=== PATIENT | male | born 2000 | race Caucasian/White ===

== ENCOUNTER 2021-01-19 10:53 | Emergency (ER) | payer OTHER ==
[2021-01-19 11:14] LABS: Urine Blood Negative (Negative); Urine Glucose Negative (Negative); Urine Protein Negative (Negative)
[2021-01-19 11:19] LABS: Absolute Lymphocytes (CBC) 0.9 K/uL (0.7-4.9); Basophils % 0.7 % (0-1.3); Hematocrit 46.3 % (39.6-49.0); Lymphocytes % 14.6 % (15.3-44.8); MPV 10.6 fL (7.6-11.3); RBC Red Blood Cell Count 5.06 M/uL (4.33-5.43)
[2021-01-19] MEDS ORDERED: NA CHLORIDE 0.9% 1,000 ML ONE (11:25)
[2021-01-19 11:28] LABS: Protime INR 1.01
[2021-01-19 11:41] LABS: ALT/SGPT 21 U/L (12-78); AST/SGOT 13 U/L (15-37); Albumin 3.7 g/dL (3.4-5.0); Alkaline Phosphatase 45 U/L (45-117); BUN Blood Urea Nitrogen 14 mg/dL (7-18); Bicarbonate 31 mmol/L (21-32); Bilirubin Direct < 0.1 mg/dL (0-0.2); Bilirubin Total 0.3 mg/dL (0.2-1.0); Glucose Level 90 mg/dL (74-106); Potassium 4.5 mmol/L (3.5-5.1); Sodium Level 140 mmol/L (136-145)
[2021-01-19 11:46] LABS: Barbiturates NEGATIVE (NEGATIVE); Benzodiazepines NEGATIVE (NEGATIVE); Cocaine NEGATIVE (NEGATIVE); METHAMPHETAM NEGATIVE (NEGATIVE); Methadone NEGATIVE (NEGATIVE); Opiates NEGATIVE (NEGATIVE); Phencyclidine NEGATIVE (NEGATIVE); THC Cannibis NEGATIVE (NEGATIVE)
--- NOTE | 2021-01-19 14:42 | ER ---
Nurse's Notes [facility] Name: Juan Steve Age: 20 yrs Sex: Male : 2000 Arrival Date: 01/19/2021 Time: 10:54 Bed Treatment Private MD: Diagnosis: Poisoning by unspecified drugs, medicaments and biological substances, undetermined Presentation: 01/19 10:54 Chief complaint: EMS states: "pt with overdose this morning at 0830 taken approximately jd3 7 of his prescribed Zoloft at 50 mg each. he denies suicidal thoughts reported he was mad about the unit being on lock down and wanted to get high.". Coronavirus screen: At this time, the client does not indicate any symptoms associated with coronavirus-19. Ebola Screen: Patient negative for fever greater than or equal to 101.5 degrees Fahrenheit, and additional compatible Ebola Virus Disease symptoms. Initial Sepsis Screen: Does the patient meet any 2 criteria? No. Patient's initial sepsis screen is negative. Does the patient have a suspected source of infection? No. Patient's initial sepsis screen is negative. Risk Assessment: Do you want to hurt yourself or someone else? Patient reports no desire to harm self or others. Onset of symptoms was January 19, 2021. 10:54 Method Of Arrival: EMS: [facility] jd3 10:54 Acuity: GERARD 2 jd3 Historical: - Allergies: 10:58 No Known Allergies; jd3 - Home Meds: 10:58 Zoloft 50 mg Oral tab 1 tab once daily [Active]; jd3 - PMHx: 10:58 Depression; jd3 - PSHx: 10:58 None; jd3 - Immunization history:: Adult Immunizations unknown. - Social history:: Smoking status: unknown. Screenin:56 Abuse screen: Denies threats or abuse. Denies injuries from another. Nutritional ld1 screening: No deficits noted. Tuberculosis screening: No symptoms or risk factors identified. Fall Risk IV access (20 points). Assessment: 10:56 Reassessment: Spoke with Attila at poison control - case # [id number]. Instructed to watch ld1 for seizures/N/V/Sleepiness/tachycardia. Check EKG, liver enzymes. Monitor for 6 hours until receive baseline, perform EKG, monitor VS, standard TOX screen. General: Appears in no apparent distress. comfortable, Behavior is calm, cooperative, appropriate for age, Patient reports taking 7 50mg Zoloft pills at 0830. Denies suicidal ideation, stated "he just wanted to get high.". Pain: Denies pain. Neuro: Level of Consciousness is awake, alert, obeys commands, Drowsy. Oriented to person, place, time, situation, Reports. Cardiovascular: Capillary refill < 3 seconds Patient's skin is warm and dry. Respiratory: Airway is patent Respiratory effort is even, unlabored, Respiratory pattern is regular, symmetrical. GI: Abdomen is flat, non-distended. : No deficits noted. EENT: No deficits noted. Derm: No deficits noted. Musculoskeletal: No deficits noted. 11:38 Reassessment: Patient and/or family updated on plan of care and expected duration. Pain ld1 level reassessed. Patient is alert, oriented x 3, equal unlabored respirations, skin warm/dry/pink. Patient denies pain at this time. 12:50 Reassessment: Patient and/or family updated on plan of care and expected duration. Pain ld1 level reassessed. Patient is alert, oriented x 3, equal unlabored respirations, skin warm/dry/pink. Patient denies pain at this time. Overdose: 14:48 [place] Suicide Severity Screening: "In the past month, have you wished you were ld1 or wished you could go to sleep and not wake up?" Patient responds "no." "In the past month, have you actually had any thoughts of killing yourself?" Patient responds "no." "In your lifetime, have you ever done anything, started to do anything, or prepared to do anything to end your life?" Patient responds "no.". Patient took 7 50MG OF ZOLOFT. Overdose occurred 6-8 hours ago. 14:49 [place] Suicide Severity Screening: "In the past month, have you wished you were ld1 or wished you could go to sleep and not wake up?" Patient responds "no." Patient responds "yes." Based off client's responses, additional C-SSRS screening questions required. "In the past month, have you actually had any thoughts of killing yourself?" Patient responds "yes." Based off client's responses, additional C-SSRS screening questions required. Vital Signs: 10:58 BP 127 / 65; Pulse 66; Resp 16 S; Temp 97.6(TE); Pulse Ox 100% on R/A; Weight 83.91 kg jd3 (R); Height 5 ft. 10 in. (177.80 cm) (R); Pain 3/10; 11:38 BP 125 / 70; Pulse 72; Resp 18; Pulse Ox 100% on R/A; ld1 12:50 BP 133 / 70; Pulse 78; Resp 18; Pulse Ox 100% on R/A; Pain 0/10; ld1 10:58 Body Mass Index 26.54 (83.91 kg, 177.80 cm) jd3 ED Course: 10:54 Patient arrived in ED. ld1 10:56 Alex Pleitez NP is PHCP. pm1 10:56 Al Nix MD is Attending Physician. pm1 10:56 Patient has correct armband on for positive identification. Placed in gown. Bed in low ld1 position. Call light in reach. Side rails up X2. Security at bedside. radiocommunications technician on. Pulse ox on. NIBP on. 10:56 No provider procedures requiring assistance completed. Maintain EMS IV. Dressing ld1 intact. Good blood return noted. Site clean \\T\\ dry. Gauge \\T\\ site: 20G LAC. 10:57 Triage completed. jd3 10:59 Arm band placed on. jd3 11:18 Initial lab(s) drawn, by me, sent to lab. Urine collected: clean catch specimen, clear, jl7 EKG done, by ED staff, reviewed by Alex Pleitez NP. 11:27 Erica Cisneros RN is Primary Nurse. ld1 14:50 IV discontinued. ld1 Administered Medications: 11:09 Drug: NS 0.9% 1000 ml Route: IV; Rate: 1 bolus; Site: left antecubital; ld1 Outcome: 14:42 Discharge ordered by MD. pm1 14:49 Discharged to Law Enforcement ld1 14:49 Condition: stable 14:49 Discharge instructions given to patient, police, Instructed on discharge instructions, Demonstrated understanding of instructions, follow-up care. 14:57 Patient left the ED. ld1 Signatures: Alex Pleitez NP BILINGUAL CUSTOMER SERVICE pm1 Jeri Beavers RN RN jl7 Charlie Kelly RN RN jd3 Dibbern, Erica, RN RN ld1
--- NOTE | 2021-01-19 14:42 | EDPHYS ---
Physician Documentation [facility] Name: Juan Steve Age: 20 yrs Sex: Male : 2000 Arrival Date: 01/19/2021 Time: 10:54 Bed Treatment Private MD: ED Physician Al Nix HPI: 01/19 11:06 This 20 yrs old Male presents to ER via EMS with complaints of Overdose. pm1 11:06 The patient presents to the emergency department after a known overdose. Context: pm1 Method: the patient has a confirmed or suspected ingestion, Zoloft 50 mg - 7 pills, Time: this morning, at 08:30, the OD/poisoning occurred at [facility], Psychiatric history: the patient has a known psychiatric disorder, depression. Associated signs and symptoms: Pertinent positives: sleepiness, Pertinent negatives: shortness of breath, chest pain. Severity of symptoms: in the emergency department the symptoms have improved Patient feels less sleepy now. The patient has not recently seen a physician. Patient is a prisoner and he was upset that they are in lock down so he took extra zoloft because he has trying to get high. Denies suicidal and homicidal ideation. Historical: - Allergies: 10:58 No Known Allergies; jd3 - Home Meds: 10:58 Zoloft 50 mg Oral tab 1 tab once daily [Active]; jd3 - PMHx: 10:58 Depression; jd3 - PSHx: 10:58 None; jd3 - Immunization history:: Adult Immunizations unknown. - Social history:: Smoking status: unknown. ROS: 11:06 Constitutional: Negative for fever, chills, and weight loss, Eyes: Negative for injury, pm1 pain, redness, and discharge, ENT: Negative for injury, pain, and discharge, Cardiovascular: Negative for chest pain, palpitations, and edema, Respiratory: Negative for shortness of breath, cough, wheezing, and pleuritic chest pain, Abdomen/GI: Negative for abdominal pain, nausea, vomiting, diarrhea, and constipation, Back: Negative for injury and pain, MS/Extremity: Negative for injury and deformity, Skin: Negative for injury, rash, and discoloration, Neuro: Negative for headache, weakness, numbness, tingling, and seizure. 11:06 Psych: Negative for homicidal ideation, suicidal ideation. Exam: 11:06 Constitutional: This is a well developed, well nourished patient who is awake, alert, pm1 and in no acute distress. Head/Face: Normocephalic, atraumatic. Cardiovascular: Regular rate and rhythm with a normal S1 and S2. No gallops, murmurs, or rubs. Normal PMI, no JVD. No pulse deficits. Respiratory: Lungs have equal breath sounds bilaterally, clear to auscultation and percussion. No rales, rhonchi or wheezes noted. No increased work of breathing, no retractions or nasal flaring. 11:06 Back: No spinal tenderness. No costovertebral tenderness. Full range of motion. Skin: Warm, dry with normal turgor. Normal color with no rashes, no lesions, and no evidence of cellulitis. MS/ Extremity: Pulses equal, no cyanosis. Neurovascular intact. Full, normal range of motion. 11:06 Abdomen/GI: Exam negative for acute changes, Inspection: abdomen appears normal, Palpation: abdomen is soft and non-tender, in all quadrants. 11:06 Neuro: Exam negative for acute changes, Orientation: is normal, Mentation: is normal, Motor: is normal, moves all fours. Vital Signs: 10:58 BP 127 / 65; Pulse 66; Resp 16 S; Temp 97.6(TE); Pulse Ox 100% on R/A; Weight 83.91 kg jd3 (R); Height 5 ft. 10 in. (177.80 cm) (R); Pain 3/10; 11:38 BP 125 / 70; Pulse 72; Resp 18; Pulse Ox 100% on R/A; ld1 12:50 BP 133 / 70; Pulse 78; Resp 18; Pulse Ox 100% on R/A; Pain 0/10; ld1 10:58 Body Mass Index 26.54 (83.91 kg, 177.80 cm) jd3 MDM: 10:57 Patient medically screened. pm1 14:42 Data reviewed: vital signs. Data interpreted: Pulse oximetry: on room air is 100 %. pm1 Interpretation: normal. Counseling: I had a detailed discussion with the patient and/or guardian regarding: the historical points, exam findings, and any diagnostic results supporting the discharge/admit diagnosis, lab results, the need for outpatient follow up. 14:46 ED course: Patient is at his baseline asking for food and water. Patient took pm1 medications over 6 hours ago and is medically cleared to return to senior care. 01/19 10:57 Order name: Acetaminophen pm01/19 10:57 Order name: Basic Metabolic Panel pm01/19 10:57 Order name: CBC with Diff pm01/19 10:57 Order name: ETOH Level 01/19 10:57 Order name: Hepatic Function; Complete Time: 11:54 pm01/19 10:57 Order name: PT-INR; Complete Time: 11:54 pm01/19 10:57 Order name: Ptt, Activated; Complete Time: 11:54 pm01/19 10:57 Order name: Salicylate; Complete Time: 11:54 pm01/19 10:57 Order name: Urine Drug Screen; Complete Time: 11:54 pm01/19 10:57 Order name: Acetaminophen Level; Complete Time: 11:54 ED01/19 10:57 Order name: Basic Metabolic Panel; Complete Time: 11:54 ED01/19 10:57 Order name: CBC with Automated Diff; Complete Time: 11:54 ED01/19 10:57 Order name: Alcohol Serum/Plasma; Complete Time: 11:54 ED01/19 11:14 Order name: Urine Dipstick-Ancillary; Complete Time: 11:54 ED01/19 10:57 Order name: EKG; Complete Time: 10:57 pm01/19 10:57 Order name: EKG - Nurse/Tech; Complete Time: 11:04 pm01/19 10:57 Order name: IV Saline Lock; Complete Time: 11:04 01/19 10:57 Order name: Labs collected and sent; Complete Time: 11:27 pm01/19 10:57 Order name: Suicide Screening ([place]); Complete Time: 11:04 pm01/19 10:57 Order name: Urine Dipstick-Ancillary (obtain specimen); Complete Time: 11:27 pm01/19 11:01 Order name: Misc. Order: Contact poison control; Complete Time: 11:04 01/19 11:05 Order name: Seizure Precautions; Complete Time: 11:06 ld1 Administered Medications: 11:09 Drug: NS 0.9% 1000 ml Route: IV; Rate: 1 bolus; Site: left antecubital; ld1 Disposition: 01/20 07:14 Co-signature as Attending Physician, Al Nix MD I agree with the assessment and brien plan of care. Disposition: 01/19/21 14:42 Discharged to Home. Impression: Poisoning by unspecified drugs, medicaments and biological substances, undetermined. - Condition is Stable. - Medication Reconciliation Form, Thank You Letter, Antibiotic Education, Prescription Opioid Use form. - Follow up: Emergency Department; When: As needed; Reason: Worsening of condition. Follow up: Private Physician; When: 2 - 3 days; Reason: Recheck today's complaints, Continuance of care, Re-evaluation by your physician. - Problem is new. - Symptoms have improved. Signatures: Dispatcher [employer] EDMS Al Nix MD MD cha Marinas, Patrick, [employer] pm1 Charlie Kelly RN RN jErica Brooks RN RN ld1 Corrections: (The following items were deleted from the chart) 01/19 14:57 14:42 01/19/2021 14:42 Discharged to Home. Impression: Poisoning by unspecified drugs, ld1 medicaments and biological substances, undetermined. Condition is Stable. Forms are Medication Reconciliation Form, Thank You Letter, Antibiotic Education, Prescription Opioid Use. Follow up: Emergency Department; When: As needed; Reason: Worsening of condition. Follow up: Private Physician; When: 2 - 3 days; Reason: Recheck today's complaints, Continuance of care, Re-evaluation by your physician. Problem is new. Symptoms have improved. pm1
[2021-01-19 15:08] VITALS: TEMP 97.6; O2SAT 100
[2021-01-19 15:11] VITALS: BP 133/70
--- NOTE | 2021-01-20 11:16 | EKG ---
Test Date: 2021-01-19 Test Time: 11:06:06 Pipeline Superintendent: SARAI MEASUREMENT RESULTS: Intervals: Rate: 66 [place]: 126 QRSD: 102 QT: 372 QTc: 389 [place]: P: 46 [place]: 126 QRS: 82 T: 52 INTERPRETIVE STATEMENTS: Normal sinus rhythm Normal ECG No previous ECG available for comparison Electronically Signed On 01-20-21 11:13:39 CDT by Dimitris Hoyos
== END 2021-01-19 14:57 | disposition home or self-care (01) ==
LOC: ER 10:53
DX: T43.221A Poisoning by selective serotonin reuptake inhibitors, accidental (unintentional), initial encounter (principal); F32.9 Major depressive disorder, single episode, unspecified
CPT/HCPCS: 36415; 80048; 80076; 80307; 80320; 80329; 81003; 85025; 85610; 85730; 93005; 99285; J7030

== ENCOUNTER 2021-04-23 05:40 | Emergency (ER) | payer OTHER ==
[2021-04-23 06:03] LABS: Urine Blood Negative (Negative); Urine Glucose Negative (Negative); Urine Protein Negative (Negative)
[2021-04-23 06:05] LABS: Absolute Lymphocytes (CBC) 1.1 K/uL (0.7-4.9); Basophils % 0.6 % (0-1.3); Hematocrit 42.3 % (39.6-49.0); Lymphocytes % 13.7 % (15.3-44.8); RBC Red Blood Cell Count 4.71 M/uL (4.33-5.43)
[2021-04-23 06:13] LABS: Protime INR 1.22
[2021-04-23] MEDS ORDERED: NA CHLORIDE 0.9% 1,000 ML ONE (06:14)
[2021-04-23 06:17] LABS: Barbiturates NEGATIVE (NEGATIVE); Benzodiazepines NEGATIVE (NEGATIVE); Cocaine NEGATIVE (NEGATIVE); METHAMPHETAM NEGATIVE (NEGATIVE); Methadone NEGATIVE (NEGATIVE); Opiates NEGATIVE (NEGATIVE); Phencyclidine NEGATIVE (NEGATIVE); THC Cannibis NEGATIVE (NEGATIVE)
[2021-04-23 06:41] LABS: ALT/SGPT 18 U/L (12-78); AST/SGOT 16 U/L (15-37); Albumin 4.3 g/dL (3.4-5.0); Alkaline Phosphatase 46 U/L (45-117); BUN Blood Urea Nitrogen 12 mg/dL (7-18); Bicarbonate 27 mmol/L (21-32); Bilirubin Direct 0.2 mg/dL (0-0.2); Bilirubin Total 0.8 mg/dL (0.2-1.0); Glucose Level 86 mg/dL (74-106); Potassium 3.8 mmol/L (3.5-5.1); Protein, Total 7.3 g/dL (6.4-8.2); Sodium Level 141 mmol/L (136-145); Valproic Acid (Depakene) Level 122.7 ug/mL (50-100)
--- NOTE | 2021-04-23 14:12 | EDPHYS ---
Physician Documentation [facility] Name: Juan Steve Age: 20 yrs Sex: Male : 2000 Arrival Date: 04/23/2021 Time: 05:42 Bed 8 Private MD: ED Physician Al Nix HPI: 04/23 06:30 This 20 yrs old Male presents to ER via EMS with complaints of Overdose. cp 06:30 The patient presents to the emergency department after a known overdose, that was cp intentional. Context: Method: the patient has a confirmed or suspected ingestion, 8 tablets of Depakote and unknown number of Zoloft, Time: this morning, 0300, the OD/poisoning occurred at skilled nursing, Psychiatric history: the patient has a known psychiatric disorder, depression. Associated signs and symptoms: Pertinent positives: vomiting. Historical: - Home Meds: 05:51 Zoloft 50 mg Oral tab 1 tab once daily [Active]; ea - PMHx: 05:51 Depression; ea - Immunization history:: Adult Immunizations unknown. - Social history:: Smoking status: unknown. ROS: 06:30 Eyes: Negative for injury, pain, redness, and discharge. cp 06:30 Constitutional: Negative for body aches, chills, fever, poor PO intake. 06:30 ENT: Negative for ear pain, sore throat, difficulty swallowing, difficulty handling secretions. 06:30 Cardiovascular: Negative for chest pain, edema, palpitations. 06:30 Respiratory: Negative for cough, shortness of breath, wheezing. 06:30 Abdomen/GI: Positive for nausea and vomiting, Negative for abdominal pain, diarrhea, constipation. 06:30 Skin: Negative for cellulitis, rash. 06:30 Neuro: Negative for altered mental status, headache, weakness. 06:30 Psych: Negative for auditory hallucinations, visual hallucinations. 06:30 All other systems are negative. cp Exam: 06:30 ECG was reviewed by the Attending Physician. cp 06:35 Constitutional: The patient appears in no acute distress, alert, awake, cp non-diaphoretic, non-toxic, well developed, well nourished. 06:35 Head/Face: Normocephalic, atraumatic. cp 06:35 Eyes: Periorbital structures: appear normal, Pupils: equal, round, and reactive to light and accomodation, Extraocular movements: intact throughout, Conjunctiva: normal, no exudate, no injection, Sclera: no appreciated abnormality, Lids and lashes: appear normal, bilaterally. 06:35 ENT: External ear(s): are unremarkable, Nose: is normal, Mouth: is normal, Posterior pharynx: Airway: no evidence of obstruction, patent. 06:35 Neck: ROM/movement: is normal, is supple, without pain, no range of motions limitations. 06:35 Chest/axilla: Inspection: normal, Palpation: is normal, no crepitus, no tenderness. 06:35 Cardiovascular: Rate: normal, Rhythm: regular, Edema: is not appreciated, JVD: is not appreciated. 06:35 Respiratory: the patient does not display signs of respiratory distress, Respirations: normal, no use of accessory muscles, no retractions, labored breathing, is not present, Breath sounds: are clear throughout, no decreased breath sounds, no stridor, no wheezing. 06:35 Abdomen/GI: Inspection: abdomen appears normal, Palpation: abdomen is soft and non-tender, in all quadrants. 06:35 Back: pain, is absent, ROM is normal. 06:35 Neuro: Orientation: to person, place \T\ time. Mentation: is normal, Cerebellar function: is grossly normal, Motor: moves all fours, strength is normal, Sensation: is normal. 13:20 ECG was reviewed by the Attending Physician. cp Vital Signs: 05:48 BP 134 / 59; Pulse 84; Resp 18; Pulse Ox 98% on R/A; ea 08:20 BP 137 / 87; Pulse 70; Resp 19; Pulse Ox 98% on R/A; hb 09:43 BP 136 / 84; Pulse 83; Resp 16; Pulse Ox 96% ; hb 10:29 BP 132 / 67; Pulse 80; Resp 16; Pulse Ox 99% on R/A; hb 11:43 BP 128 / 64; Pulse 71; Resp 15; Pulse Ox 97% on R/A; Pain 0/10; hb 12:30 BP 124 / 55; Pulse 52; Resp 20; Pulse Ox 99% ; hb 13:42 BP 128 / 57; Pulse 93; Resp 17; Pulse Ox 99% on R/A; hb MDM: 06:15 Patient medically screened. cp 14:10 Data reviewed: vital signs, nurses notes, lab test result(s), EKG, I have discussed the cp patient's presentation/case with the attending Emergency Department Physician; and as a result, I will discharge patient. 04/23 05:49 Order name: Acetaminophen [facility] 04/23 05:49 Order name: Basic Metabolic Panel [facility] 04/23 05:49 Order name: CBC with Diff [facility] 04/23 05:49 Order name: ETOH Level [facility] 04/23 05:49 Order name: Hepatic Function [facility] 04/23 05:49 Order name: PT-INR [facility] 04/23 05:49 Order name: Ptt, Activated; Complete Time: 06:49 04/23 05:49 Order name: Salicylate; Complete Time: 06:49 04/23 05:49 Order name: Urine Drug Screen; Complete Time: 06:49 04/23 06:49 Interpretation: Reviewed. cp 04/23 05:49 Order name: Depakote; Complete Time: 06:49 [facility] 04/23 06:49 Interpretation: Abnormal: VALP 122.7. 04/23 05:49 Order name: Acetaminophen Level; Complete Time: 06:49 EDMS 04/23 05:49 Order name: Basic Metabolic Panel; Complete Time: 06:49 EDMS 04/23 05:49 Order name: CBC with Automated Diff; Complete Time: 06:49 EDMS 04/23 06:49 Interpretation: Normal except: PLT 146; PAULETTE% 79.0; LYM% 13.7. 04/23 05:49 Order name: Alcohol Serum/Plasma; Complete Time: 06:49 EDMS 04/23 05:49 Order name: EKG; Complete Time: 05:49 04/23 05:49 Order name: EKG - Nurse/Tech; Complete Time: 06:02 04/23 05:49 Order name: IV Saline Lock; Complete Time: 05:54 04/23 05:49 Order name: Labs collected and sent; Complete Time: 05:54 04/23 05:49 Order name: Suicide Screening ([place]); Complete Time: 14:07 04/23 05:49 Order name: Urine Dipstick-Ancillary (obtain specimen); Complete Time: 06:02 04/23 05:49 Order name: Liver (Hepatic) Function; Complete Time: 06:49 EDMS 04/23 05:49 Order name: Protime (+INR); Complete Time: 06:49 EDMS 04/23 06:03 Order name: Urine Dipstick-Ancillary; Complete Time: 06:49 EDMS 04/23 06:17 Order name: Depakote; Complete Time: 06:49 ea 04/23 08:39 Order name: SARS-COV-2 RT PCR; Complete Time: 12:40 EDMS 04/23 08:58 Order name: Diet Regular; Complete Time: 08:59 hb 04/23 12:41 Order name: Valproic Acid (depakote); Complete Time: 14:00 cp 04/23 13:00 Order name: EKG; Complete Time: 13:01 cp 04/23 13:00 Order name: EKG - Nurse/Tech; Complete Time: 13:42 cp EC:30 Rate is 76 beats/min. Rhythm is regular. [place] interval is normal. QRS interval is cp prolonged at 106 msec. QT interval is normal. T waves are Inverted in lead aVR. Interpreted by me. Reviewed by me. 13:20 Rate is 75 beats/min. Rhythm is regular. [place] interval is normal. QRS interval is cp prolonged at 104 msec. QT interval is normal. T waves are Inverted in lead aVR. Interpreted by me. Reviewed by me. Administered Medications: 06:02 Drug: NS 0.9% 1000 ml Route: IV; Rate: 1 bolus; Site: right forearm; ad5 Disposition: 04/24 06:27 Co-signature as Attending Physician, Al Nix MD I agree with the assessment and brien plan of care. 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 EDMS EDMS 14:13 14:11 Home cp cp 07 14:48 06:30 Constitutional: Negative for body aches, chills, fever, poor PO intake, cp cp 14:48 06:30 Cardiovascular: Negative for chest pain, edema, palpitations, cp cp 14:48 06:30 Respiratory: Negative for cough, shortness of breath, wheezing, cp cp 14:48 06:30 Abdomen/GI: Positive for nausea and vomiting, Negative for abdominal pain, cp diarrhea, constipation, cp 14:48 06:30 Eyes: Negative for injury, pain, redness, and discharge, cp cp 14:48 06:30 ENT: Negative for ear pain, sore throat, difficulty swallowing, difficulty cp handling secretions, cp 14:48 06:30 Skin: Negative for cellulitis, rash, cp cp 14:48 06:30 Neuro: Negative for altered mental status, headache, weakness, cp cp 14:48 06:30 Psych: Negative for auditory hallucinations, visual hallucinations, cp cp 14:50 06:30 All other systems are negative, cp cp
--- NOTE | 2021-04-23 14:12 | ER ---
Nurse's Notes [facility] Name: Juan Steve Age: 20 yrs Sex: Male : 2000 Arrival Date: 04/23/2021 Time: 05:42 Bed 8 Private MD: Diagnosis: Other psychoactive substance abuse Presentation: 04/23 05:48 Chief complaint: EMS states: Reports pt admitted to taking 6 depakote, and a hand full ea of zoloft about 3 1/2 hours ago. Coronavirus screen: At this time, the client does not indicate any symptoms associated with coronavirus-19. Ebola Screen: No symptoms or risks identified at this time. Initial Sepsis Screen: Does the patient meet any 2 criteria? No. Patient's initial sepsis screen is negative. Does the patient have a suspected source of infection? No. Patient's initial sepsis screen is negative. Risk Assessment: Do you want to hurt yourself or someone else? Patient reports no desire to harm self or others. Onset of symptoms was April 23, 2021. 05:48 Method Of Arrival: EMS: [facility] ea 05:48 Acuity: GERARD 3 ea Historical: - Home Meds: 05:51 Zoloft 50 mg Oral tab 1 tab once daily [Active]; ea - PMHx: 05:51 Depression; ea - Immunization history:: Adult Immunizations unknown. - Social history:: Smoking status: unknown. Screenin:50 Abuse screen: Denies threats or abuse. Nutritional screening: No deficits noted. ea Tuberculosis screening: No symptoms or risk factors identified. Fall Risk None identified. Assessment: 05:42 Reassessment: Pt to room 8 with PD at bedside for continuous monitoring. Pt remains in ad5 clothing from facility, attached to . C-SSRS paper form completed at this time. 05:51 General: Appears uncomfortable. Pain: Denies pain. Neuro: Level of Consciousness is ea awake, alert, obeys commands, Oriented to person, place, time. Cardiovascular: Patient's skin is warm and dry. Respiratory: Airway is patent Respiratory effort is even, unlabored, Respiratory pattern is regular, symmetrical. Derm: Skin is pink, warm \T\ dry. 05:52 Reassessment: Spoke to Marcello at poison control, suggested tox work up, supportive ea care, 46 hour valporic acid leve, obs pt for 12 hours, watch for [employer] depression #[id number]. 07:00 Reassessment: RECD REPORT FROM GREY KRAMER. 20YO WM [facility] INMATE P/W INTENTIONAL OVERDOSE bp OF DEPAKOTE AND ZOLOFT PER POISON CONTROL, PT TO REMAIN UNDER OBS FOR 12 HOURS AFTER INGESTION, \R\1500. 07:15 Reassessment: Patient appears in no apparent distress at this time. Patient and/or hb family updated on plan of care and expected duration. Pain level reassessed. Patient is alert, oriented x 3, equal unlabored respirations, skin warm/dry/pink. 08:15 Reassessment: Patient appears in no apparent distress at this time. Patient and/or hb family updated on plan of care and expected duration. Pain level reassessed. Patient is alert, oriented x 3, equal unlabored respirations, skin warm/dry/pink. 09:42 Reassessment: Patient appears in no apparent distress at this time. Patient and/or hb family updated on plan of care and expected duration. Pain level reassessed. Patient is alert, oriented x 3, equal unlabored respirations, skin warm/dry/pink. 10:29 Reassessment: Patient appears in no apparent distress at this time. Patient and/or hb family updated on plan of care and expected duration. Pain level reassessed. Patient is alert, oriented x 3, equal unlabored respirations, skin warm/dry/pink. 11:43 Reassessment: Patient appears in no apparent distress at this time. Patient and/or hb family updated on plan of care and expected duration. Pain level reassessed. Patient is alert, oriented x 3, equal unlabored respirations, skin warm/dry/pink. 12:45 Reassessment: Patient appears in no apparent distress at this time. Patient and/or hb family updated on plan of care and expected duration. Pain level reassessed. Patient is alert, oriented x 3, equal unlabored respirations, skin warm/dry/pink. 13:43 Reassessment: Patient appears in no apparent distress at this time. Patient and/or hb family updated on plan of care and expected duration. Pain level reassessed. Patient is alert, oriented x 3, equal unlabored respirations, skin warm/dry/pink. 14:51 Reassessment: PT CLEARED FROM OBS. CLEARED TO D/C TO [facility] AT B/S. bp TRANSPORT PENDING. 15:40 Reassessment: Patient appears in no apparent distress at this time. No changes from hb previously documented assessment. Vital Signs: 05:48 BP 134 / 59; Pulse 84; Resp 18; Pulse Ox 98% on R/A; ea 08:20 BP 137 / 87; Pulse 70; Resp 19; Pulse Ox 98% on R/A; hb 09:43 BP 136 / 84; Pulse 83; Resp 16; Pulse Ox 96% ; hb 10:29 BP 132 / 67; Pulse 80; Resp 16; Pulse Ox 99% on R/A; hb 11:43 BP 128 / 64; Pulse 71; Resp 15; Pulse Ox 97% on R/A; Pain 0/10; hb 12:30 BP 124 / 55; Pulse 52; Resp 20; Pulse Ox 99% ; hb 13:42 BP 128 / 57; Pulse 93; Resp 17; Pulse Ox 99% on R/A; hb ED Course: 05:42 Patient arrived in ED. ea 05:50 Triage completed. ea 05:50 Patient has correct armband on for positive identification. Bed in low position. Call ea light in reach. Side rails up X2. 05:51 Arm band placed on right wrist. Patient placed in an exam room, on a stretcher, on ea pulse oximetry. 06:01 Grey Moon is Primary Nurse. ad5 06:14 Al Yanez PA is PHCP. cp 06:14 Ramon Vargas MD is Attending Physician. cp 07:41 Al Nix MD is Attending Physician. cp 09:17 Primary Nurse role handed off by Grey Moon bp 09:17 Alonzo Ambriz, NIA is Primary Nurse. bp 14:51 No provider procedures requiring assistance completed. Patient did not have IV access bp during this emergency room visit. IV discontinued, intact, bleeding controlled, No redness/swelling at site. Administered Medications: 06:02 Drug: NS 0.9% 1000 ml Route: IV; Rate: 1 bolus; Site: right forearm; ad5 Outcome: 14:11 Discharge ordered by MD. cp 15:59 Patient left the ED. iw Signatures: Sonya Alamo RN RN iw Page, Corey, PA PA cp Baxter, Heather, RN RN hb Antunez, Elena, RN RN ea Peltier, Alonzo, RN RN bp Moon, Grey juares
[2021-04-23 23:16] VITALS: O2SAT 99
[2021-04-23 23:17] VITALS: BP 128/57
== END 2021-04-23 15:59 | disposition home or self-care (01) ==
LOC: ER 05:40
DX: F19.10 Other psychoactive substance abuse, uncomplicated (principal); Z20.822 Contact with and (suspected) exposure to COVID-19
CPT/HCPCS: 93005 ×2; 85025; 80048; 36415; 80320; 80329 ×2; 85610; 80076; 80164 ×3; 85730; 81003; 80307; 99284; U0003; J7030